=== PATIENT | female | born 1995 | race Hispanic/Latino ===

== ENCOUNTER 2022-07-20 15:49 | Emergency (ER) | payer MEDICAID, OTHER ==
[2022-07-20 17:24] LABS: #Eosinphils 0.1 10x3/uL (0.0-0.5); #Monocytes 0.5 10x3/uL (0.0-1.1); #Neutrophils 5.8 10x3/uL (1.5-8.4); %Basophils 0.1 % (0.0-2.0); %Eosinophils 0.6 % (0.0-6.0); %Lymphocytes 19.4 % (18.0-47.0); %Monocytes 6.8 % (0.0-10.0); %Neutrophils 72.6 % (40.0-75.0); Hemoglobin 13.3 g/dL (12.0-15.5); Mean Corpuscular HGB CONC 35.4 g/dL (32.0-36.0); Mean Corpuscular Volume 87.6 fl (81.6-98.3); Platelet Count 262 10x3/uL (150-450); RBC Distribution Width 12.4 % (11.5-14.5); Red Blood Cell (RBC) Count 4.29 10x6/uL (3.90-5.03)
[2022-07-20 17:24] LABS: Bilirubin Neg (Negative); Blood, Urine Negative (Negative); Clarity Slightly Cloudy (Clear); Glucose, Urine (Dipstick) Normal (Negative); Ketone, Urine Negative (Negative); Leukocyte Negative (Negative); Nitrite Negative (Negative); Protein, Urine (Dipstick) Negative (Neg-Trace); Specific Gravity, Urine 1.015 (1.002-1.036); Urobilinogen Normal mg/dL (Less than 2)
[2022-07-20] MEDS ORDERED: Acetaminophen 500 MG TAB ONE (17:26)
[2022-07-20 17:33] LABS: ALT (SGPT) 38 U/L (8-55); AST (SGOT) 23 U/L (5-34); Albumin 3.7 g/dL (3.5-5.0); Alkaline Phosphatase 61 U/L (40-110); Anion Gap 13 mmol/L (10-20); BUN (Urea Nitrogen) 6 mg/dL (7.0-18.7); Bilirubin, Total 0.3 mg/dL (0.2-1.2); Calc. Creatinine Clearance 0 mL/min (70-130); Calcium 9.2 mg/dL (7.8-10.44); Carbon Dioxide 19 mmol/L (22-29); Chloride 110 mmol/L (98-107); Estimated GFR 123; Globulin 2.8 g/dL (2.4-3.5); Glucose 88 mg/dL (70-105); Potassium 3.6 mmol/L (3.5-5.1); Protein, Total 6.5 g/dL (6.0-8.3); Sodium 138 mmol/L (136-145)
== END 2022-07-20 18:18 | disposition home or self-care (01) ==
LOC: CSHERS 15:49
DX: O99.891 Other specified diseases and conditions complicating pregnancy (principal); R10.31 Right lower quadrant pain
CPT/HCPCS: 76815; 80053; 81003; 85025

== ENCOUNTER 2022-08-07 13:14 | Outpatient (CLI) | payer OTHER | END 2022-08-07 13:15 | disposition home or self-care (01) | LOC: CSHULT 13:14 | PROVIDERS: ATTEND Nurse Practitioner Women's Health | DX: O09.892 Supervision of other high risk pregnancies, second trimester (principal); Z3A.21 21 weeks gestation of pregnancy | CPT/HCPCS: 76805 ==

== ENCOUNTER 2022-11-27 12:13 | Inpatient (IN) | payer OTHER, SELFPAY ==
[2022-11-27] MEDS ORDERED: Bicitra 30 ML UDCUP PO PRN (12:43)
[2022-11-27] MEDS ORDERED: Ondansetron PF 4 MG/2 ML Vial IVP PRN ×2 (12:43→18:40)
[2022-11-27] MEDS ORDERED: Promethazine HCl 25 MG/ML VIAL IM PRN ×2 (12:43→18:40)
[2022-11-27] MEDS ORDERED: Famotidine/PF 20 mg/2ml Vial SLOW IVP PRN (12:43)
[2022-11-27] MEDS ORDERED: hydrALAZINE 20 MG/ML VIAL SLOW IVP PRN ×3 (12:43→13:39)
[2022-11-27] MEDS ORDERED: CEFAZOLIN 2 GM in Sodium Chloride 0.9% 100 ML IVPB SCH (12:45)
[2022-11-27 12:52] VITALS: BMI 37.7
[2022-11-27] MEDS ORDERED: Magnesium Sulfate 20 gm/500 ml 20 GM/500 ML BAG ONE (13:30)
[2022-11-27] MEDS ORDERED: Lorazepam 2 MG/ML VIAL SLOW IVP PRN (13:39)
[2022-11-27] MEDS ORDERED: Labetalol HCl 100 MG/20 ML VIAL SLOW IVP PRN ×2 (13:39)
[2022-11-27] MEDS ORDERED: Calcium Gluc 4.6 MEQ/10 ML (100 MG/ML) SLOW IVP PRN (13:39)
[2022-11-27] MEDS: Lactated Ringer's 1,000 ML IV SCH (14:05)
[2022-11-27] MEDS: Magnesium Sulfate 20 gm/500 ml 20 GM/500 ML BAG IVPB SCH (14:05)
[2022-11-27 14:23] LABS: Hemoglobin 13.3 g/dL (12.0-15.5); Mean Corpuscular HGB CONC 35.3 g/dL (32.0-36.0); Mean Corpuscular Hemoglobin 30.9 pg (27.0-33.0); Mean Corpuscular Volume 87.5 fl (81.6-98.3); Mean Platelet Volume 12.5 fl (7.4-10.4); Platelet Count 221 10x3/uL (150-450); RBC Distribution Width 12.8 % (11.5-14.5); Red Blood Cell (RBC) Count 4.31 10x6/uL (3.90-5.03); White Blood Cell (WBC) Count 7.7 10x3/uL (3.5-10.5)
[2022-11-27 14:39] LABS: ALT (SGPT) 30 U/L (8-55); AST (SGOT) 23 U/L (5-34); Albumin 3.2 g/dL (3.5-5.0); Alkaline Phosphatase 216 U/L (40-110); Anion Gap 14 mmol/L (10-20); BUN (Urea Nitrogen) 9 mg/dL (7.0-18.7); Bilirubin, Total 0.3 mg/dL (0.2-1.2); Calc. Creatinine Clearance 205 mL/min (70-130); Calcium 8.5 mg/dL (7.8-10.44); Carbon Dioxide 18 mmol/L (22-29); Chloride 109 mmol/L (98-107); Estimated GFR 128; Globulin 2.9 g/dL (2.4-3.5); Glucose 76 mg/dL (70-105); Potassium 3.9 mmol/L (3.5-5.1); Protein, Total 6.1 g/dL (6.0-8.3); Sodium 137 mmol/L (136-145)
[2022-11-27] MEDS ORDERED: Dexamethasone 4 mg/ml Vial ONE (14:49)
[2022-11-27] MEDS ORDERED: Oxytocin 10 UNITS/ML VIAL ONE (14:49)
[2022-11-27] MEDS ORDERED: Morphine PF 10 MG/10 ML VIAL ONE (14:49)
[2022-11-27] MEDS ORDERED: Ondansetron PF 4 MG/2 ML Vial ONE (14:49)
[2022-11-27] MEDS ORDERED: PHENYLEPHRINE-NS 100 MCG/ML 10 ML SYRINGE ONE ×3 (14:49→18:20)
[2022-11-27 14:54] LABS: HBSAg Index 0.12 S/CO (0-0.99); Hep B Surf Ag Non-Reactive S/CO (NonReactive)
[2022-11-27 14:55] LABS: Syphilis Antibody Nonreactive (Nonreactive); Syphilis Antibody Index 0.05 S/CO (<1.00 Non-Reactive)
[2022-11-27] MEDS ORDERED: Naloxone HCl 0.4 mg/ml Vial IVP PRN ×2 (18:40)
[2022-11-27] MEDS ORDERED: diphenhydrAMINE 50 MG/ML VIAL IVP PRN (18:40)
[2022-11-27] MEDS ORDERED: L&D-Morphine 4 MG/ML VIAL SLOW IVP PRN (18:40)
[2022-11-27] MEDS ORDERED: Moisturizing Cream (Eucerin) 113 GM JAR TOP PRN (18:40)
[2022-11-27] MEDS ORDERED: Meperidine HCl/PF 25 MG/ML VIAL SLOW IVP PRN (18:40)
[2022-11-27] MEDS ORDERED: Promethazine HCl 25 MG SUPP PR PRN (18:40)
[2022-11-27] MEDS ORDERED: Naloxone HCl 0.4 mg/ml Vial IV PRN (18:40)
[2022-11-27] MEDS ORDERED: Fentanyl 100 MCG/2 ML VIAL SLOW IVP PRN (18:40)
[2022-11-27] MEDS ORDERED: Ondansetron HCl/PF 4 MG/2 ML Vial IVP PRN (18:40)
[2022-11-27] MEDS ORDERED: Ketorolac Tromethamine 30 MG/ML VIAL IVP SCH (18:45)
[2022-11-27] MEDS ORDERED: Communication Order-Pharmacy FS SCH (18:45)
[2022-11-27] MEDS: Ketorolac Tromethamine 30 MG/ML VIAL IVP PRN (19:31)
[2022-11-27 22:16] LABS: SARS-CoV-2 NAA Rapid Test Not Detected (NotDetected)
[2022-11-28 00:29] LABS: Magnesium 5.2 mg/dL (1.6-2.6)
[2022-11-28] MEDS: Ketorolac Tromethamine 30 MG/ML VIAL IVP PRN ×3 (01:23→13:49)
[2022-11-28] MEDS: Lactated Ringer's 1,000 ML IV SCH (01:48)
[2022-11-28 04:53] LABS: Anion Gap 14 mmol/L (10-20); BUN (Urea Nitrogen) 8 mg/dL (7.0-18.7); Calc. Creatinine Clearance 195 mL/min (70-130); Calcium 7.4 mg/dL (7.8-10.44); Carbon Dioxide 17 mmol/L (22-29); Chloride 106 mmol/L (98-107); Estimated GFR 126; Glucose 88 mg/dL (70-105); Potassium 4.1 mmol/L (3.5-5.1); Sodium 133 mmol/L (136-145)
[2022-11-28 04:54] LABS: Magnesium 5.8 mg/dL (1.6-2.6)
[2022-11-28] MEDS ORDERED: Methylergonovine 0.2 MG/ML VIAL ONE (05:01)
[2022-11-28] MEDS ORDERED: Misoprostol 200 MCG TAB ONE (05:01)
[2022-11-28] MEDS ORDERED: Tranexamic Acid 1,000 MG/10 ML VIAL ONE (05:01)
[2022-11-28] MEDS ORDERED: Carboprost 250 MCG/ML AMP ONE (05:01)
[2022-11-28] MEDS ORDERED: NS w/ Oxytocin 30 units 500 ML ONE (05:03)
[2022-11-28] MEDS ORDERED: Oxytocin 10 UNITS/ML VIAL ONE (05:03)
[2022-11-28] MEDS: Magnesium Sulfate 20 gm/500 ml 20 GM/500 ML BAG IVPB SCH (12:16)
[2022-11-28] MEDS ORDERED: Lorazepam 2 MG/ML VIAL SLOW IVP PRN (18:13)
[2022-11-28] MEDS ORDERED: Misoprostol 200 MCG TAB PR PRN (18:13)
[2022-11-28] MEDS ORDERED: Boostrix 0.5 ML (Tdap) VIAL (>/=7 yrs of age) IM ONE (18:13)
[2022-11-28] MEDS ORDERED: Lanolin Ointment 7 GM TUBE TOP PRN (18:13)
[2022-11-28] MEDS ORDERED: Simethicone Chewable 80 MG TAB PO PRN (18:13)
[2022-11-28] MEDS ORDERED: diphenhydrAMINE 25 MG CAP PO PRN (18:13)
[2022-11-28] MEDS ORDERED: Ondansetron PF 4 MG/2 ML Vial IVP PRN (18:13)
[2022-11-28] MEDS ORDERED: Calcium Gluc 4.6 MEQ/10 ML (100 MG/ML) SLOW IVP PRN (18:13)
[2022-11-28] MEDS ORDERED: NS w/ Oxytocin 30 units 500 ML IV SCH (18:13)
[2022-11-28] MEDS ORDERED: Methylergonovine 0.2 MG/ML VIAL IM PRN (18:13)
[2022-11-28] MEDS ORDERED: hydrALAZINE 20 MG/ML VIAL SLOW IVP PRN (18:13)
[2022-11-28] MEDS ORDERED: Magnesium Sulfate 20 gm/500 ml 20 GM/500 ML BAG IVPB SCH ×2 (18:13)
[2022-11-28] MEDS ORDERED: HYDROcodone/Acetaminophen 5/325 mg Tablet PO PRN (18:13)
[2022-11-28] MEDS: HYDROcodone/Acetaminophen 5/325 mg Tablet PO PRN (18:48)
[2022-11-28] MEDS ORDERED: Prenatal Vitamin 1 TAB PO SCH (21:00)
[2022-11-28] MEDS: Ibuprofen 800 MG TAB PO SCH ×2 (21:23)
[2022-11-28] MEDS: Docusate 100 MG CAP PO SCH (21:23)
[2022-11-28] MEDS: Ferrous Sulfate 325 MG TAB PO SCH (21:25)
[2022-11-29] MEDS: HYDROcodone/Acetaminophen 5/325 mg Tablet PO PRN ×4 (01:45→21:46)
[2022-11-29 03:30] LABS: Mean Corpuscular HGB CONC 34.2 g/dL (32.0-36.0); Mean Corpuscular Hemoglobin 30.9 pg (27.0-33.0); Mean Corpuscular Volume 90.4 fl (81.6-98.3); Mean Platelet Volume 11.2 fl (7.4-10.4); Platelet Count 218 10x3/uL (150-450); RBC Distribution Width 13.1 % (11.5-14.5); Red Blood Cell (RBC) Count 3.56 10x6/uL (3.90-5.03); White Blood Cell (WBC) Count 8.4 10x3/uL (3.5-10.5)
[2022-11-29] MEDS: Ibuprofen 800 MG TAB PO SCH ×3 (05:27→21:47)
[2022-11-29] MEDS: Ferrous Sulfate 325 MG TAB PO SCH (08:06)
[2022-11-29] MEDS: Docusate 100 MG CAP PO SCH ×2 (08:14→21:47)
[2022-11-29] MEDS: Prenatal Vitamin 1 TAB PO SCH (08:14)
[2022-11-29] MEDS ORDERED: NIFEdipine XL 30 MG TAB PO SCH (15:30)
[2022-11-29] MEDS: NIFEdipine XL 30 MG TAB PO SCH (17:32)
[2022-11-30] MEDS: Ferrous Sulfate 325 MG TAB PO SCH ×2 (03:22→11:02)
[2022-11-30] MEDS: Ibuprofen 800 MG TAB PO SCH ×2 (05:29→14:20)
[2022-11-30 07:38] VITALS: TEMP 98.1
[2022-11-30] MEDS: NIFEdipine XL 30 MG TAB PO SCH (09:11)
[2022-11-30] MEDS: Docusate 100 MG CAP PO SCH (09:11)
[2022-11-30] MEDS: Prenatal Vitamin 1 TAB PO SCH (09:11)
[2022-11-30] MEDS: HYDROcodone/Acetaminophen 5/325 mg Tablet PO PRN (09:15)
[2022-11-30 12:31] VITALS: BP 142/88
[2022-11-30] MEDS ORDERED: NIFEdipine XL 30 MG TAB PO SCH (17:00)
== END 2022-11-30 16:10 | disposition home or self-care (01) | DRG 788 ==
LOC: CSHLD/OP 12:13 → CSHLD 13:27 → CSHPP 11-28 19:05
PROVIDERS: ADMIT Family Medicine; ATTEND Family Medicine
PROC: 10D00Z1 Extraction of Products of Conception, Low, Open Approach (ICD-10-PCS; principal; 2022-11-27)
DX: O14.14 Severe pre-eclampsia complicating childbirth (principal); Z20.822 Contact with and (suspected) exposure to COVID-19; Z3A.36 36 weeks gestation of pregnancy; Z37.0 Single live birth; O24.420 Gestational diabetes mellitus in childbirth, diet controlled; O34.211 Maternal care for low transverse scar from previous cesarean delivery; Z79.82 Long term (current) use of aspirin; Z79.899 Other long term (current) drug therapy; O34.13 Maternal care for benign tumor of corpus uteri, third trimester; D25.9 Leiomyoma of uterus, unspecified
CPT/HCPCS: 36415; 36416; 51702; 80048; 80053; 82570; 83735; 84156; 85027; 86780; 86850; 86900; 86901; 87340; 99285; J0360; J1100; J1200; J1885; J2274; J2405; J2590; J3475; J7120; U0002

== ENCOUNTER 2022-12-23 19:53 | Emergency (ER) | payer OTHER, SELFPAY ==
[~2022-12-23 19:53] MED LIST: Iopamidol 370 76% 100 ML VIAL ONE
[2022-12-23] MEDS ORDERED: Metoclopramide HCl 10 MG/2 ML VIAL ONE (20:38)
[2022-12-23] MEDS ORDERED: Ketorolac Tromethamine 30 MG/ML VIAL ONE (20:39)
[2022-12-23 20:41] LABS: #Eosinphils 0.1 10x3/uL (0.0-0.5); #Monocytes 0.4 10x3/uL (0.0-1.1); #Neutrophils 4.6 10x3/uL (1.5-8.4); %Basophils 0.2 % (0.0-2.0); %Eosinophils 1.7 % (0.0-6.0); %Lymphocytes 21.7 % (18.0-47.0); %Monocytes 6.1 % (0.0-10.0); Hemoglobin 14.6 g/dL (12.0-15.5); Mean Corpuscular HGB CONC 34.7 g/dL (32.0-36.0); Mean Corpuscular Hemoglobin 30.3 pg (27.0-33.0); Mean Corpuscular Volume 87.3 fl (81.6-98.3); Mean Platelet Volume 9.8 fl (7.4-10.4); Platelet Count 287 10x3/uL (150-450); RBC Distribution Width 11.8 % (11.5-14.5); Red Blood Cell (RBC) Count 4.82 10x6/uL (3.90-5.03); White Blood Cell (WBC) Count 6.6 10x3/uL (3.5-10.5)
[2022-12-23 20:53] LABS: INR-International Normal Ratio 0.9; PTT 25.3 sec (22.0-33.0); Prothrombin Time 10.3 sec (9.5-12.1)
[2022-12-23 20:56] LABS: ALT (SGPT) 81 U/L (8-55); AST (SGOT) 52 U/L (5-34); Albumin 4.4 g/dL (3.5-5.0); Alkaline Phosphatase 101 U/L (40-110); Anion Gap 14 mmol/L (10-20); BUN (Urea Nitrogen) 10 mg/dL (7.0-18.7); Bilirubin, Total 0.4 mg/dL (0.2-1.2); Calc. Creatinine Clearance 0 mL/min (70-130); Calcium 9.6 mg/dL (7.8-10.44); Carbon Dioxide 23 mmol/L (22-29); Chloride 107 mmol/L (98-107); Estimated GFR 122; Globulin 3.7 g/dL (2.4-3.5); Glucose 97 mg/dL (70-105); Potassium 3.6 mmol/L (3.5-5.1); Protein, Total 8.1 g/dL (6.0-8.3); Sodium 140 mmol/L (136-145)
== END 2022-12-23 22:16 | disposition home or self-care (01) ==
LOC: CSHERS 19:53
DX: R51.9 Headache, unspecified (principal)
CPT/HCPCS: 70496; 80053; 85025; 85610; 85730; 96365; 96366; 96375; J1885; J2765; Q9967